=== PATIENT | male | born 1980 | race Caucasian/White ===

== ENCOUNTER 2020-07-01 07:14 | Emergency (ER) | payer MEDICAID ==
[~2020-07-01] VITALS: Ht 177.8 cm; Wt 75.0 kg
[~2020-07-01 07:14] MED LIST: IBUP-2028 PO
[2020-07-01] MEDS ORDERED: SODIUM CHLORIDE 0.9% 1,000 ML IV ONE (07:35)
[2020-07-01] MEDS ORDERED: KETOROLAC 30MG/ML VIAL IV STA (07:35)
[2020-07-01 08:09] LABS: BASOPHILS % 0.8 % (0.0-2.0); EOSINOPHILS % 1.2 % (0.0-5.0); HEMATOCRIT. 42.6 % (42.0-52.0); HEMOGLOBIN. 14.4 g/dL (14.0-18.0); LYMPHOCYTES % 25.6 % (20.0-50.0); MEAN CORPUSCULAR HEMOGLOBIN 30.3 pg (28.0-32.0); MEAN CORPUSCULAR VOLUME 89.9 fL (80.0-94.0); MEAN PLATELET VOLUME 7.2 fl (7.4-10.4); MONOCYTES % 8.6 % (2.0-8.0); NEUTROPHILS % 63.8 % (40.0-76.0); PLATELET 282 x1000/uL (130-400); RED BLOOD CELL COUNT 4.75 mill/uL (4.7-6.1)
[2020-07-01 08:16] LABS: CHLORIDE 109 mEq/L (98-107)
[2020-07-01 08:19] LABS: PROTHROMBIN TIME 10.6 sec (9.6-11.0)
[2020-07-01 09:00] LABS: CLARITY URINE CLEAR (CLEAR); COLOR URINE YELLOW (YELLOW); KETONES URINE NEGATIVE (NEGATIVE); LEUKOCYTE ESTERASE URINE NEGATIVE (NEGATIVE); NITRITE URINE NEGATIVE (NEGATIVE); OCCULT BLOOD URINE 2+ (NEGATIVE); PROTEIN URINE TRACE (NEGATIVE); SPECIFIC GRAVITY URINE 1.032 (1.005-1.030)
[2020-07-01] MEDS ORDERED: POTASSIUM CHLORIDE 20MEQ TABLET SR PO ONE (12:00)
[2020-07-01 14:00] VITALS: BP 127/76
== END 2020-07-01 15:12 | disposition home or self-care (01) ==
LOC: ER 07:20
DX: R10.9 Unspecified abdominal pain (principal); E87.6 Hypokalemia; B20 Human immunodeficiency virus [HIV] disease
CPT/HCPCS: 36415; 74176; 80053; 81003; 83690; 85025; 85610; 99285; J7030

== ENCOUNTER 2020-07-28 03:35 | Emergency (ER) | payer MEDICAID ==
[~2020-07-28] VITALS: Ht 177.8 cm; Wt 75.0 kg
[2020-07-28 03:39] VITALS: BP 160/70
[2020-07-28] MEDS ORDERED: KETOROLAC 60MG/2ML VIAL IM ONE (05:45)
[2020-07-28] MEDS ORDERED: ACETAMINOPHEN 325MG TABLET PO ONE (07:15)
== END 2020-07-28 07:15 | disposition home or self-care (01) ==
LOC: ER 03:35
DX: M25.512 Pain in left shoulder (principal); F12.10 Cannabis abuse, uncomplicated; Z98.890 Other specified postprocedural states
CPT/HCPCS: 73030; 96372; 99283; J1885